=== PATIENT | female | born 1995 | race American Indian/Alaskan Native ===

== ENCOUNTER 2020-08-29 20:46 | Emergency (ER) | payer SELFPAY ==
[2020-08-29] MEDS ORDERED: DIPHtheria,PERTUSSIS(ACELL),TETANUS VACCINE/PF 0.5 ML VIAL IM ONE (21:23)
[2020-08-29] MEDS ORDERED: IBUPROFEN 800 MG TAB PO ONE (21:25)
--- NOTE | 2020-08-29 21:28 | Emergency Department Report ---
ED General Adult HPI - General Stated complaint: LAC RT ANKLE Time Seen by Provider: 08/29/20 21:22 - History of Present Illness Initial comments: 24 yo AA F pt presents with complaints of right lower leg wound x today. Pt states she cut her leg when she fell around 4 pm today. She reports she cleaned the wound with water and hydrogen peroxide. She denies any joint pain, swelling, possible foreign bodies, numbness/tingling/weakness, or difficulty moving her limb. Pt is unsure of her last tetanus vaccination. She rates her current pain as a 8/10 in severity and describes it as throbbing - Related Data Previous Rx's Medication Instructions Recorded Last Taken Type Ibuprofen [Motrin 800 MG tab] 800 mg PO Q8HR PRN #20 tablet 08/29/20 Unknown Rx Mupirocin [Bactroban 2% OINT] 1 applic TP TID 7 Days #1 tube 08/29/20 Unknown Rx ED Review of Systems ROS: Stated complaint: LAC RT ANKLE Other details as noted in HPI Constitutional: denies: chills, fever Respiratory: denies: shortness of breath Cardiovascular: denies: chest pain Musculoskeletal: denies: joint swelling, arthralgia Skin: as per HPI. denies: change in color Neurological: denies: numbness, paresthesias Hematological/Lymphatic: denies: easy bleeding ED Past Medical Hx - Medications Home Medications: Home Medications Medication Instructions Recorded Confirmed Last Taken Type Ibuprofen [Motrin 800 MG tab] 800 mg PO Q8HR PRN #20 tablet 08/29/20 Unknown Rx Mupirocin [Bactroban 2% OINT] 1 applic TP TID 7 Days #1 tube 08/29/20 Unknown Rx ED Physical Exam - General General appearance: alert, in no apparent distress - Head Head exam: Present: atraumatic, normocephalic - Eye Eye exam: Present: normal appearance - Neck Neck exam: Present: full ROM - Respiratory Respiratory exam: Absent: respiratory distress - Cardiovascular Cardiovascular Exam: Present: regular rate - Neurological Exam Neurological exam: Present: alert, oriented X3, normal gait - Psychiatric Psychiatric exam: Present: normal affect, normal mood - Skin Skin exam: Present: warm, dry. Absent: intact (1 cm round mildly deep abrasion noted to tight lateral loewer leg without swelling, redness, or obvious foreign body; wound irrigated with 40 cc of saline and dressed in sterile dressing.), rash, erythema, ecchymosis ED Medical Decision Making - Medical Decision Making 24 yo AA F pt presents with complaints of right lower leg wound x today. Pt states she cut her leg when she fell around 4 pm today. She reports she cleaned the wound with water and hydrogen peroxide. She denies any joint pain, swelling, possible foreign bodies, numbness/tingling/weakness, or difficulty moving her limb. Pt is unsure of her last tetanus vaccination. She rates her current pain as a 8/10 in severity and describes it as throbbing No sutures required. Wound cleaned and dressed in sterile dressing. Tetanus updated. Discussed wound care and signs and symptoms that should prompt immediate return to the ED in detail with pt who verbalizes understanding. She is well appearing, vitals are normal, and pt is stable for discharge home Critical care attestation.: If time is entered above; I have spent that time in minutes in the direct care of this critically ill patient, excluding procedure time. ED Disposition Clinical Impression: Leg wound, right Qualifiers: Encounter type: initial encounter Qualified Code(s): S81.801A - Unspecified open wound, right lower leg, initial encounter Disposition: DC-01 TO HOME OR SELFCARE Is pt being admited?: No Condition: Stable Instructions: Deep Skin Avulsion, Wound Care, Adult Prescriptions: Mupirocin [Bactroban 2% OINT] 1 applic TP TID 7 Days #1 tube Ibuprofen [Motrin 800 MG tab] 800 mg PO Q8HR PRN #20 tablet PRN Reason: pain Referrals: [facility] [Provider Group] - 3-5 Days
[2020-08-29 22:39] VITALS: BP 105/64
== END 2020-08-29 23:28 | disposition home or self-care (01) ==
LOC: ED 20:46
DX: S81.801A Unspecified open wound, right lower leg, initial encounter (principal); Z79.899 Other long term (current) drug therapy; W17.89XA Other fall from one level to another, initial encounter; Y93.89 Activity, other specified; Y92.89 Other specified places as the place of occurrence of the external cause; Y99.8 Other external cause status
CPT/HCPCS: 90471; 90715; 99282